=== PATIENT | male | born 1970 | race African-American/Black ===

== ENCOUNTER 2022-05-20 07:09 | Outpatient (REF) | payer OTHER, SELFPAY ==
[2022-05-20 11:12] LABS: MANUAL DIFF FLAG NO
[2022-05-20 11:19] LABS: Basophils Percent Auto 0.6 % (0-2); Eosinophils Absolute Auto 0.1 X10*3/uL (0.0-0.4); Eosinophils Percent Auto 1.8 % (0-4); Hematocrit 45.3 % (42.0-52.0); Hemoglobin 15.5 g/dl (14.0-18.0); Imm Gran Abs Auto 0.02 X10*3/uL (0.00-0.03); Imm Gran Pct Auto 0.3 % (0.0-0.4); Lymphocytes Absolute Auto 2.9 X10*3/uL (1.2-4.9); Lymphocytes Percent Auto 41.2 % (20-40); Mean Corpuscular HGB Conc 34.2 g/dl (31.0-36.0); Mean Corpuscular Hemoglobin 30.9 pg (27.0-33.0); Mean Corpuscular Volume 90.4 fL (80.0-98.0); Mean Platelet Volume 12.6 fL (9.4-12.4); Monocytes Absolute Auto 0.4 X10*3/uL (0.1-1.2); Monocytes Percent Auto 6.1 % (2-11); Neutrophils Absolute Auto 3.5 x10*3/uL (2.0-8.3); Platelet Count 197 X10*3/uL (160-400); Red Blood Count 5.01 X10*6/uL (4.60-5.80); Red Cell Distribution Width 11.7 % (11.0-16.0); White Blood Count 7.1 X10*3/uL (4.8-10.8)
[2022-05-20 12:26] LABS: Alanine Aminotransferase 25 U/L (0-40); Anion Gap 13 (12-20); Aspartate Amino Transferase 18 U/L (5-37); Blood Urea Nitrogen 16 mg/dL (9-16); Carbon Dioxide 25 mmol/L (22-29); Chloride 104 mmol/L (96-108); Cholesterol 291 mg/dL; Estimated Glomerular Filt Rate > 60; Glucose Fasting 299 mg/dL (60-99); HDL Cholesterol 39 mg/dL; LDL Cholesterol Calculated 217 mg/dl; Potassium 4.6 mmol/L (3.3-5.1); Sodium 137 mmol/L (135-145); Triglycerides 179 mg/dL
[2022-05-20 12:34] LABS: PSA,Total (Free>4and<10) 1.28 ng/mL (0.00-4.00); TSH reflex Free T4 0.99 uIU/mL (0.32-4.0); Vitamin D 25-OH Total 24.2 ng/mL (>30)
[2022-05-25 14:24] LABS: Testosterone, Free 94.5 pg/mL (35.0-155.0); Testosterone, Total 508 ng/dL (250-1100)
== END 2022-05-20 07:10 | disposition home or self-care (01) ==
LOC: HO.HMGCLDS 07:09
PROVIDERS: PCP Internal Medicine; Visit Provider Internal Medicine
DX: Z00.01 Encounter for general adult medical examination with abnormal findings (principal); Z12.5 Encounter for screening for malignant neoplasm of prostate; F32.A Depression, unspecified; F41.9 Anxiety disorder, unspecified; N52.9 Male erectile dysfunction, unspecified; E66.3 Overweight
CPT/HCPCS: 36415; 80048; 80061; 82306; 84153; 84402; 84403; 84443; 84450; 84460; 85025

== ENCOUNTER → 2022-06-24 14:48 | Outpatient (BNVA) | payer OTHER, SELFPAY | PROVIDERS: PCP Internal Medicine; Visit Provider Nurse Practitioner Family ==

== ENCOUNTER → 2022-06-30 07:47 | Outpatient (BNVA) | payer OTHER, SELFPAY | PROVIDERS: PCP Internal Medicine; Referring Provider Internal Medicine; Visit Provider Nurse Practitioner Family ==

== ENCOUNTER 2022-09-29 08:41 | Outpatient (AMB) | payer OTHER, SELFPAY ==
--- NOTE | 2022-09-29 08:43 | A.OFFVIS_ITS ---
Intake Intake Visit Reasons: 3m follow up Intake Note: Patient presents for follow up visit erectile dysfunction Urology Medications: Tadalafil Blood Thinner: none Solar Energy Sales Specialist Required: No Accompanied by: Self / Same As Patient Allergies No Known Allergies Allergy (Unverified 09/29/22 12:06) Medication List - Last Reconciled 09/29/22 by OTILIA Dasilva bisacodyl (Dulcolax (bisacodyl)) 10 mg (2 x 5 mg) PO ONCE 1 day polyethylene glycol 3350 (Miralax) 238 grams PO ONCE tadalafil (Cialis) 5 mg PO DAILY PRN 90 days tadalafil (Cialis) 20 mg PO DAILY 90 days HPI HPI Comments History of Present Illness Details Imtiaz is a pleasant 51-year-old male patient of Dr. Patel. He presents to the office today for a follow up. Of note, patient was previously seen approximately 3 months ago as a new patient for erectile dysfunction at which time he was started on low-dose 5 mg of Cialis daily with additional p.r.n. dose for sexual activity. In discussion with the patient today he reports this to be working well and wishes to continue. When asked patient reports to be doing and feeling well. He continues with poor sleep habits. In office urinalysis with 3+ glucosuria. Patient reports being diagnosed with diabetes in the past however lost a significant amount of weight and believed himself to not have diabetes. Discussed at length diabetes in relation to urological issues as well as overall health and well-being. Discussed at length importance of limiting/quitting marijuana in the affects of marijuana on erectile dysfunction and overall health and well-being. Patient otherwise denies urinary urgency, urinary frequency, incontinence, nocturia, hematuria, dysuria, foul smelling urine, changes to urinary stream, flank pain, fever, and or chills. He is happy with his current voiding parameters. In review of patient's chart PSA 05/13--1.3 and Testosterone level 05/13--508. PFSH Medical History Erectile dysfunction Family history of thyroid disease in mother Overweight (BMI 25.0-29.9) Surgical History No pertinent past surgical history Family History Father Alcohol abuse by father Mother Mental health disorder Diabetes mellitus Goiter Brother Depression Social History Housing: House Patient Tobacco Use Status: Former Tobacco user e-Cigarette/Vaping Use: Never Used service: No Current occupational status: employed Cognitive needs: No Hearing needs: No Vision needs: Yes Review of Systems Const All systems reviewed & are unremarkable except as noted in HPI and below Reports as per HPI Eyes Reports no additional complaints ENT Reports no additional complaints Card Reports no additional complaints Resp Reports no additional complaints GI Reports no additional complaints Reports as per HPI Musc Reports no additional complaints Neuro Reports no additional complaints Psych Reports no additional complaints Endo Reports as per HPI Taqueria/Lymph Reports no additional complaints Aller/Immun Reports no additional complaints Physical Exam Const General: cooperative, healthy appearing, comfortable, no acute distress, well developed, alert and awake Orientation/consciousness: patient oriented x3 Limitations: no limitations HEENT Head: Yes normal to inspection, Yes normocephalic and Yes atraumatic Ears: hearing grossly normal bilaterally Eyes General: appearance normal, both eyes and all related structures Neck Neck: Yes normal visual inspection and Yes trachea midline Chest Chest palpation & inspection: normal inspection of the chest Resp Effort & Inspection: normal respiratory effort and able to speak in complete sentences Cardio Rate: regular rate GI Inspection: Yes normal to inspection General: Yes no CVA tenderness Back/Spine/Pelvis Back: no CVA tenderness Skin General skin exam: no rashes or lesions noted Neuro General: patient oriented x3 Extrem General: Yes normal to inspection Psych Appearance: grossly normal and well kempt Mental Status: mental status grossly normal Speech and movement: Normal speech and movement present and Clear speech present Affect: normal affect Attitude: cooperative Thought process: Normal thought process present Thought content: Normal thought content present Insight: Fair insight present (Psych) Judgement: Fair judgement present (Psych) Results AMB Urinalysis, Automated UA Leukoctes 0 Reji/uL Last Edit by Jan Hernandez on 09/29/22 09:10 UA Nitrite Last Edit by Jan Hernandez on 09/29/22 09:10 UA Urobilinogen 0.2 mg/dL Last Edit by Jan Hernandez on 09/29/22 09:10 UA Protein 30 mg/dL Last Edit by Jan Jovanahailey on 09/29/22 09:10 UA pH 6.0 Last Edit by Jan Hernandez on 09/29/22 09:10 UA Blood 0 Federico/uL Last Edit by Jan Hernandez on 09/29/22 09:10 UA Specific Mclean 1.020 Last Edit by Jan Hernandez on 09/29/22 09:10 UA Ketone Negative Last Edit by Jan Hernandez on 09/29/22 09:10 UA Bilirubin 0 mg/dL Last Edit by Jan Hernandez on 09/29/22 09:10 UA Glucose 1000 mg/dL Last Edit by Jan Hernandez on 09/29/22 09:10 Results Reviewed Results Reviewed: Laboratory Last Values Urine pH (Auto) 6.0 09/29/22 08:59 Specific Mclean (Auto) 1.020 09/29/22 08:59 Urine Protein (Auto) 30 mg/dL 09/29/22 08:59 Glucose (UA)(Auto) 1000 mg/dL 09/29/22 08:59 Urine Ketones (Auto) Negative 09/29/22 08:59 Urine Blood (Auto) 0 Federico/uL 09/29/22 08:59 Urine Bilirubin (Auto) 0 mg/dL 09/29/22 08:59 Urine Urobilinogen (Auto) 0.2 mg/dL 09/29/22 08:59 Leukocyte Esterase (Auto) 0 Reji/uL 09/29/22 08:59 Assessment & Plan Assessment & Plan (1) Erectile dysfunction: Code(s): N52.9 - Male erectile dysfunction, unspecified Plan In office urinalysis results reviewed with the patient today. Discussed at length importance of lifestyle modifications with adequate sleep, limiting/quitting recreational marijuana, in weight loss for improvement in erectile dysfunction as well as overall health and well-being. Refills provided on 5 mg low-dose Cialis daily and p.r.n. for sexual activity. Patient otherwise denies any urological issues or concerns at this time. He is happy with his current voiding parameters PSA in 6 months. Follow-up in 6 months with lab to be completed prior; or sooner with any issues, concerns, and or questions. Orders: Orders Prostate Specific Antigen 6 Months N40.0 - Benign prostatic hyperplasia without lower urinary tract symptoms AMB Urinalysis Automated Today Z13.9 - Encounter for screening, unspecified Medications: Refilled tadalafil (Cialis) [facility] Group [facility] [address] [id number] 5 mg PO DAILY 90 days PRN 90 tabs 4RF sexual activity tadalafil (Cialis) [facility] Group [facility] [address] [id number] 20 mg PO DAILY 90 days 20 tabs 4RF Patient Instructions: The patient had an opportunity to ask questions regarding the treatment plan. All questions were answered. Physical exam, labs, and imaging were discussed and reviewed in detail. As well as risks, benefits, and discussion of treatment choices. No major barriers to understanding were identified. The patient expressed understanding and agreement with the above treatment plan. The patient was made aware they should contact our office by phone for worsening of their current condition, the appearance of new symptoms, or with any questions or concerns. Compliance is encouraged with any medications and follow up testing that is ordered. It is a privilege to be allowed the opportunity to participate in? your urological care.? Again, if you have any questions or concerns If you have any questions or concerns please do not hesitate to contact me. The office is [phone]. This note is constructed using voice recognition software. While every effort h as been made to ensure accuracy interactive media marketing specialist errors may have been included. Yours sincerely, OTILIA Dasilva Coding Level of Care Code Est Pt Level 3 (48563) Diagnoses Erectile dysfunction N52.9
== END 2022-09-29 09:30 | disposition home or self-care (01) ==
PROVIDERS: Visit Provider Nurse Practitioner Family
DX: N52.9 Male erectile dysfunction, unspecified (principal)
CPT/HCPCS: 99213

== ENCOUNTER → 2022-09-29 08:41 | Outpatient (BNVA) | payer OTHER, SELFPAY | PROVIDERS: Visit Provider Nurse Practitioner Family ==

== ENCOUNTER 2023-02-14 02:45 | Emergency (ER) | payer OTHER, SELFPAY ==
[2023-02-14 02:46] VITALS: BP 122/82; BP 138/81; PULSE 102; PULSE 108; RESP 14; TEMP 36.5; O2SAT 94; O2SAT 97; BMI 29.2
[2023-02-14 03:07] LABS: Glucose, Whole Blood 410 mg/dL (60-115)
[2023-02-14] MEDS: metFORMIN HCl 500 MG TABLET PO (03:08)
[2023-02-14] MEDS: Insulin Lispro 100 UNIT/ML 3 ML VIAL 14 UNIT SUBCUT (03:08)
[2023-02-14] MEDS: Insulin Glargine,Hum.rec.anlog 100 UNIT/ML 10 ML VIAL 20 UNIT SUBCUT (03:09)
--- NOTE | 2023-02-14 03:21 | PC.NURSE ---
pt ambulating well, walked in a straight line, gait even and steady
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
== END 2023-02-14 03:33 | disposition home or self-care (01) ==
LOC: HO.ED 03:32
PROVIDERS: Emergency Provider Internal Medicine
DX: Z04.1 Encounter for examination and observation following transport accident (principal); E11.65 Type 2 diabetes mellitus with hyperglycemia; F10.10 Alcohol abuse, uncomplicated
CPT/HCPCS: 82947; 99283; 99284

== ENCOUNTER 2023-04-01 08:16 | Day surgery (SDC) | payer OTHER, SELFPAY ==
[2023-03-30 13:00] VITALS: BMI 28.6
--- NOTE | 2023-03-31 11:53 | HO.ANESPROP2 ---
HPI - Anesthesia Eval Consult details Narrative: 52yo M for Colonoscopy [facility] Active Problems Active Problems: All Active Problems (Updated 02/15/23 @ 00:01 by Mateus Pope) Family history of thyroid disease in mother (Acute) Erectile dysfunction (Acute) Overweight (BMI 25.0-29.9) (Acute) Past Medical History Medical History Family history of thyroid disease in mother Erectile dysfunction Overweight (BMI 25.0-29.9) Family History Family History Father Alcohol abuse by father Mother Mental health disorder Diabetes mellitus Goiter Brother Depression Surgical History Surgical History No pertinent past surgical history Social History Social History Housing: House Alcohol intake: current Alcohol intake frequency: a few times a week Patient Tobacco Use Status: Former Tobacco user e-Cigarette/Vaping Use: Never Used Substance Use Type: Marijuana service: No Current occupational status: employed Cognitive needs: No Hearing needs: No Vision needs: Yes Meds Allergies Allergy/AdvReac Type Severity Reaction Status Date / Time No Known Allergies Allergy Verified 02/14/23 03:33 Exam Height,Weight and Vital Signs: Height 5 ft 8 in Weight 85.275 kg Assessment and Plan Assessment Anesthesia Assessment: Chart Reviewed
[2023-04-01 08:27] VITALS: BMI 27.9
[2023-04-01 08:29] VITALS: BP 112/80; PULSE 89; RESP 16; TEMP 36.4; O2SAT 97
[2023-04-01 08:42] LABS: Glucose, Whole Blood 214 mg/dL (60-115)
[2023-04-01] MEDS: Lactated Ringers 1,000 ML 100 ML IVCONT (08:44)
--- NOTE | 2023-04-01 08:56 | MHC.SHP ---
Pre-Procedural Eval Section A - 24 Hr Update-Section A only Date of Service: 04/01/23 The patient is an INPATIENT: No The patient has been examined within 24 hours of the surgical procedure. The History & Physical has been completed within 30 days and I have reviewed it.: No Section B - Complete if H&P > 30 days Chief Complaint: Colon cancer screening Relevant Family History (Specify if Yes): No Relevant Social History: Tobacco Use (former smoker) Present Medications: see Short Stay Collaborative assessment Medical History: Significant History (Erectile dysfunction Family history of thyroid disease in mother Overweight (BMI 25.0-29.9)) History of Previous Operations: Relevant previous surgery/procedure and date(s) (Hx of colonoscopy) Allergies: Allergies Allergy/AdvReac Type Severity Reaction Status Date / Time No Known Allergies Allergy Verified 02/14/23 03:33 Review of Systems Sugical H&P ROS: Negative: Constitution, Cardiovascular, Respiratory and Gastrointestinal Exam Surgical H&P Exam: Normal: Heart, Normal: Lungs, Normal: Extremities and Normal: Abdomen Plan Diagnosis/Plan: Unchanged I have reviewed the history and physical and performed a pertinent physical examination on my patient. No changes have occurred unless specified. Time Spent With Patient Time: Total time managing care of this patient today ____ minutes.
--- NOTE | 2023-04-01 09:10 | P.OP_ITS ---
Operative Note Operative Note Date of Service: 04/01/23 Narrative: COLONOSCOPY TILL CECUM WITH BIOPSIES Pre-op diagnosis: Colon cancer screening, intermittent rectal bleeding Post-op diagnosis:? Colon polyp, diverticulosis, hemorrhoids Endoscopist:? Paty Banda MD Anesthesia:?MAC Consent: Indications for the procedure and potential complications of bleeding, perforation, reaction to medications and missed diagnosis were discussed with the patient and informed consent was obtained. Instrument: Olympus CF H 190 L variable stiffness adult colonoscope Monitoring: Vital signs and clinical assessment, intermittent blood pressure monitoring, continuous EKG monitoring, Pulse oximetry and Carbon Dioxide monitoring were done throughout the procedure. Please see anesthesia flowsheet. Colon withdrawl time was 16 minutes. Procedure: The patient was placed in the left lateral decubitis position and pre-procedure medications were administered. After a digital rectal examination of the ano-rectum, the video colonoscope was inserted into the rectum and advanced through the colon to the cecum. The colonoscope was slowly withdrawn in a retrograde panoramic fashion and the colon mucosa was carefully examined including a retroflexed view of the rectum. Findings and interventions are described below. Procedure Difficulty: Without difficulty Findings: Terminal Ileum: Not evaluated Cecum: Normal Ascending Colon: Normal Transverse Colon: Normal Descending Colon: Normal Sigmoid Colon: A few 4-5 mm diminutive appearing polyps in the rectosigmoid colon - 1 was removed with a cold biopsy. Moderate diverticulosis Rectum: A few 4-5 mm diminutive appearing polyps in the rectosigmoid colon Ano-rectum: Large nonbleeding internal hemorrhoids Colon preparation: Excellent [place] Bowel Preparation Scale Right colon; 3 Transverse colon: 3 Left colon;3 (0 = Unprepared colon segment with mucosa not seen due to solid stool that cannot be cleared. 1 = Portion of mucosa of the colon segment seen, but other areas of the colon segment not well seen due to staining, residual stool and/or opaque liquid. 2 = Minor amount of residual staining, small fragments of stool and/or opaque liquid, but mucosa of colon segment seen well. 3 = Entire mucosa of colon segment seen well with no residual staining, small fragments of stool or opaque liquid) Impression and Post Procedure Diagnosis: Colonoscopy Findings: One diminutive appearing polyp removed Moderate diverticulosis seen in the sigmoid colon Large non-bleeding hemorrhoids on retroflexed exam. Plan: Await pathology results Patient has an appointment on 04/15/23 in the GI Clinic with Anusha Mckeon FNP- [facility]. Repeat Colonoscopy interval based on path results - in 5 years if polyps are adenomatous and 10 years if polyps are hyperplastic. Colon polyps, hemorrhoids and diverticulosis handouts were given in the [facility] [place] area
--- NOTE | 2023-04-01 09:11 | HO.ANESPROP2 ---
[facility] Active Problems Active Problems: All Active Problems (Updated 02/15/23 @ 00:01 by Mateus Pope) Family history of thyroid disease in mother (Acute) Erectile dysfunction (Acute) Overweight (BMI 25.0-29.9) (Acute) Diabetes type 2 Past Medical History Medical History Family history of thyroid disease in mother Erectile dysfunction Overweight (BMI 25.0-29.9) Family History Family History Father Alcohol abuse by father Mother Mental health disorder Diabetes mellitus Goiter Brother Depression Family history of problems with anesthesia: No Surgical History Surgical History No pertinent past surgical history History of Problems with Anesthesia: No Social History Social History Housing: House Alcohol intake: current Alcohol intake frequency: a few times a week Patient Tobacco Use Status: Former Tobacco user e-Cigarette/Vaping Use: Never Used Use of substances other than those prescribed or required for medical reasons: Yes Substance Use Type: Marijuana Are you DNR?: No Advance Directives: No Advance Directives Information Provided: Yes service: No Current occupational status: employed Cognitive needs: No Hearing needs: No Vision needs: Yes Meds Allergies Allergy/AdvReac Type Severity Reaction Status Date / Time No Known Allergies Allergy Verified 02/14/23 03:33 Active Medications: Current Medications Lactated Ringer's (Lr) 1,000 mls @ 100 mls/hr IVCONT .Q10H MELIDA Last Admin: 04/01/23 08:44 Dose: 100 mls/hr Exam Height,Weight and Vital Signs: Height 5 ft 9 in Weight 85.786 kg Last Vital Signs Temp 97.6 F 04/01/23 08:29 Pulse 89 04/01/23 08:29 Resp 16 04/01/23 08:29 BP 112/80 04/01/23 08:29 Pulse Ox 97 04/01/23 08:29 O2 Del Method Room Air 04/01/23 08:29 Pertinent Lab Results Pertinent Lab Results: Laboratory Tests 04/01/23 08:38 POC Glucose 214 H Airway Mallampati Class: III TM Dist: >3cm Neck ROM: Full Heart: RRR Lungs: CTA Assessment and Plan Assessment Anesthesia Assessment: Anesthesia Plan Discussed Final Anesthetic Review Family History of Problems with Anesthesia: No History of Problems with Anesthesia: No ASA Class: III Final Preanesthetic Review: Meds/Allgs Chart Reviewed, Consent Obtained/Reviewed and Anes Risks/Benef Reviewed Patient Risk: Low Procedure Risk: Low Anesthetic Plan Anesthetic Plan: MAC: Disposition: Standard PACU
[2023-04-01 09:48] VITALS: BP 93/53; PULSE 85; RESP 16; TEMP 36.3; O2SAT 97
[2023-04-01 10:03] VITALS: BP 116/67; PULSE 76; RESP 16; TEMP 36.3; O2SAT 98
--- NOTE | 2023-04-01 14:06 | HO.POSTANES ---
Post Anesthesia Evaluation Post Anesthesia Evaluation Date of Service: 04/01/23 Vital Signs: Vital Signs Temp Pulse Resp BP Pulse Ox O2 Del Method 04/01/23 10:03 97.3 F 76 16 116/67 98 Room Air 04/01/23 09:48 97.3 F 85 16 93/53 L 97 Room Air 04/01/23 08:29 97.6 F 89 16 112/80 97 Room Air Anesthesia: Monitored Mental Status: Awake Pain Control: Satisfactory Nausea/Vomiting: None Hydration: Adequate Anesthesia-Related Issues: No Anes. Related Issues
== END 2023-04-01 11:00 | disposition home or self-care (01) ==
PROVIDERS: Visit Provider Internal Medicine Gastroenterology
PROC: 0DJD8ZZ Inspection of Lower Intestinal Tract, Via Natural or Artificial Opening Endoscopic (ICD-10-PCS; CPT 45378; principal; 2023-04-01 09:00)
DX: Z12.11 Encounter for screening for malignant neoplasm of colon (principal); K63.5 Polyp of colon; K57.30 Diverticulosis of large intestine without perforation or abscess without bleeding; K64.8 Other hemorrhoids; R73.9 Hyperglycemia, unspecified; Z83.3 Family history of diabetes mellitus
CPT/HCPCS: 45380; 82947; 88305; J2704

== ENCOUNTER → 2023-04-01 08:16 | Outpatient (BNV) | payer OTHER, SELFPAY | PROVIDERS: Visit Provider Internal Medicine Gastroenterology | DX: Z12.11 Encounter for screening for malignant neoplasm of colon (principal); K63.5 Polyp of colon; K57.30 Diverticulosis of large intestine without perforation or abscess without bleeding; K64.8 Other hemorrhoids | CPT/HCPCS: 45380 ==

== ENCOUNTER 2023-10-25 10:24 | Outpatient (REF) | payer OTHER, SELFPAY ==
[2023-10-25 11:43] LABS: Prostate Specific Antigen 1.17 ng/mL (<0.05-4.0)
== END 2023-10-25 10:25 | disposition home or self-care (01) ==
LOC: HO.LAB 10:24
PROVIDERS: Visit Provider Nurse Practitioner Family
DX: N40.0 Benign prostatic hyperplasia without lower urinary tract symptoms (principal); Z12.5 Encounter for screening for malignant neoplasm of prostate
CPT/HCPCS: 36415; 84153

== ENCOUNTER 2023-12-06 14:30 | Outpatient (AMB) | payer OTHER, SELFPAY ==
--- NOTE | 2023-12-06 14:48 | A.OFFVIS_ITS ---
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 Patel. He presents to the office today for a follow up of his erectile dysfunction. Of note, patient was seen approximately 1 year ago at which time was started on low-dose Cialis daily as well as p.r.n. dosing prior to sexual activity. In discussion with the patient today he reports minimal improvement in obtaining and maintaining his erections despite utilizing these medications. He continues to smoke recreational marijuana daily. We discussed at length importance of limiting/quitting recreational marijuana in relation to erectile dysfunction. In office urinalysis notes 3+ glucosuria we also discussed at length importance of managing diabetes for improvement in erections and overall health and well- being. He otherwise denies any bothersome urinary issues. He denies urinary urgency, urinary frequency, incontinence, nocturia, hematuria, dysuria, foul smelling urine, changes to urinary stream, flank pain, fever, and or chills. He is happy with his current voiding parameters. Recent PSA results reviewed with the patient today as noted and trended below... PSA 05/13 1.3, 11/14 1.2 Testosterone level 05/13 508 free testosterone 94.5. He otherwise offers no other issues or concerns at the time. [facility] Medical History Family history of thyroid disease in mother Erectile dysfunction Overweight (BMI 25.0-29.9) Surgical History No pertinent past surgical history Family History Father Alcohol abuse by father Mother Mental health disorder Diabetes mellitus Goiter Brother Depression Social History Housing: House Alcohol intake: current Alcohol intake frequency: a few times a week Patient Tobacco Use Status: Former Tobacco user e-Cigarette/Vaping Use: Never Used Substance Use Type: Marijuana service: No Current occupational status: employed Cognitive needs: No Hearing needs: No Vision needs: Yes Review of Systems Const All systems reviewed & are unremarkable except as noted in HPI and below Reports as per HPI Eyes Reports no additional complaints ENT Reports no additional complaints Card Reports no additional complaints Resp Reports no additional complaints GI Reports no additional complaints Reports as per HPI Musc Reports no additional complaints Neuro Reports no additional complaints Psych Reports no additional complaints Endo Reports as per HPI Taqueria/Lymph Reports no additional complaints Aller/Immun Reports no additional complaints Physical Exam Const General: cooperative, healthy appearing, comfortable, no acute distress, well developed, alert and awake Orientation/consciousness: patient oriented x3 Limitations: no limitations HEENT Head: Yes normal to inspection, Yes normocephalic and Yes atraumatic Ears: hearing grossly normal bilaterally Eyes General: appearance normal, both eyes and all related structures Neck Neck: Yes normal visual inspection and Yes trachea midline Chest Chest palpation & inspection: normal inspection of the chest Resp Effort & Inspection: normal respiratory effort and able to speak in complete sentences Cardio Rate: regular rate GI Inspection: Yes normal to inspection General: Yes no CVA tenderness Back/Spine/Pelvis Back: no CVA tenderness Skin General skin exam: no rashes or lesions noted Neuro General: patient oriented x3 Extrem General: Yes normal to inspection Psych Appearance: grossly normal and well kempt Mental Status: mental status grossly normal Speech and movement: Normal speech and movement present and Clear speech present Affect: normal affect Attitude: cooperative Thought process: Normal thought process present Thought content: Normal thought content present Insight: Fair insight present (Psych) Judgement: Fair judgement present (Psych) Results AMB Urinalysis, Automated UA Leukoctes 0 Reji/uL Last Edit by [employer]ara [employer]hailey on 12/06/23 15:14 UA Nitrite Last Edit by [employer] on 12/06/23 15:14 UA Urobilinogen 0.2 mg/dL Last Edit by [employer]iley on 12/06/23 15:14 UA Protein 15 mg/dL Last Edit by [employer] on 12/06/23 15:14 UA pH 5.5 Last Edit by [employer] on 12/06/23 15:14 UA Blood 0 Federico/uL Last Edit by [employer] on 12/06/23 15:14 UA Specific Jerome 1.015 Last Edit by [employer] on 12/06/23 15:14 UA Ketone Last Edit by [employer] on 12/06/23 15:14 UA Bilirubin 0 mg/dL Last Edit by [employer] on 12/06/23 15:14 UA Glucose 1000 mg/dL Last Edit by [employer] on 12/06/23 15:14 Results Reviewed Results Reviewed: Laboratory Last Values Urine pH (Auto) 5.5 12/06/23 15:11 Specific Jerome (Auto) 1.015 12/06/23 15:11 Urine Protein (Auto) 15 mg/dL 12/06/23 15:11 Glucose (UA)(Auto) 1000 mg/dL 12/06/23 15:11 Urine Blood (Auto) 0 Federico/uL 12/06/23 15:11 Urine Bilirubin (Auto) 0 mg/dL 12/06/23 15:11 Urine Urobilinogen (Auto) 0.2 mg/dL 12/06/23 15:11 Leukocyte Esterase (Auto) 0 Reji/uL 12/06/23 15:11 Assessment & Plan Assessment & Plan (1) Erectile dysfunction associated with type 2 diabetes mellitus: Code(s): E11.69 - Type 2 diabetes mellitus with other specified complication; N52.1 - Erectile dysfunction due to diseases classified elsewhere Category: Medical Plan In office urinalysis results with the patient today; as noted above. Recent PSA results reviewed with the patient today; as noted above. Discussed, educated, and stressed the importance of managing diabetes for improvement in ED as well as overall health and well-being. Continue 5 mg of Cialis daily P.r.n. prescription provided for Viagra We discussed further treatment options of erectile dysfunction to include penile injection therapy. Discussed at length importance of lifestyle modifications with adequate sleep, limiting/quitting recreational marijuana, in weight loss for improvement in erectile dysfunction as well as overall health and well-being. Patient otherwise denies any urological issues or concerns at this time. He is happy with his current voiding parameters Will obtain A1c Follow-up in 3 months with A1c to be completed prior or sooner with any issues, concerns, and or questions. Orders: Orders AMB Urinalysis Automated Today Z13.9 - Encounter for screening, unspecified Medications: New sildenafil (Viagra) Take 1 tablet as needed 1 hour prior to sexual activity do not exceed more than 2-3 tablets per week. [facility] [address] [id number] 100 mg PO .PRN 30 days 14 tabs 3RF Discontinued tadalafil (Cialis) [facility] [address] [id number] Discontinued Reason: Doctor's Order 20 mg PO DAILY 90 days 20 tabs 0RF Patient Instructions: The patient had an opportunity to ask questions regarding the treatment plan. All questions were answered. Physical exam, labs, and imaging were discussed and reviewed in detail. As well as risks, benefits, and discussion of treatment choices. No major barriers to understanding were identified. The patient expressed understanding and agreement with the above treatment plan. The patient was made aware they should contact our office by phone for worsening of their current condition, the appearance of new symptoms, or with any questions or concerns. Compliance is encouraged with any medications and follow up testing that is ordered. It is a privilege to be allowed the opportunity to participate in? your urological care.? Again, if you have any questions or concerns If you have any questions or concerns please do not hesitate to contact me. The office is [phone]. This note is constructed using voice recognition software. While every effort has been made to ensure accuracy application developer errors may have been included. Yours sincerely, OTILIA Dasilva Coding Level of Care Code Est Pt Level 4 (42665) Diagnoses Erectile dysfunction associated with type 2 diabetes mellitus E11.69; N52.1
== END 2023-12-06 15:22 | disposition home or self-care (01) ==
PROVIDERS: Visit Provider Nurse Practitioner Family
DX: E11.69 Type 2 diabetes mellitus with other specified complication (principal); N52.1 Erectile dysfunction due to diseases classified elsewhere; Z13.9 Encounter for screening, unspecified
CPT/HCPCS: 99214

== ENCOUNTER → 2023-12-06 14:30 | Outpatient (BNVA) | payer OTHER, SELFPAY | PROVIDERS: Visit Provider Nurse Practitioner Family | DX: E11.69 Type 2 diabetes mellitus with other specified complication (principal); N52.1 Erectile dysfunction due to diseases classified elsewhere | CPT/HCPCS: 81003 ==

== ENCOUNTER 2024-11-08 09:46 | Outpatient (AMB) | payer OTHER, SELFPAY ==
--- NOTE | 2024-11-08 10:19 | A.OFFPC_ITS ---
Vital Signs 11/08/24 10:20 Height 5 ft 8 in Weight 177 lb BMI 26.9 BP 122/80 Blood Pressure Location Lt brachial Position Sitting Respiration 16 Pulse 90 Pulse Source Pulse Oximeter Temp 98.3 F Temp Source Oral Pulse Oximetry (%) 97 Oxygen Delivery Method Room Air Intake Visit Reasons: Medical Concerns Intake Note: Pt is here today to f/u DM Allergies No Known Allergies Allergy (Verified 11/08/24 10:41) Medication List - Last Reconciled 11/08/24 by Ciara Patel MD blood-glucose meter As directed Tobacco use date assessed: 11/08/24 Dental Screening Dental Screen Date: 11/08/24 Did you have a dental visit in the last 12 months?: No Did you have a dental problem in the last 6 months where you did not have access to dental care?: No Was dental information given to patient?: Patient has dentist HPI Medical Concerns HPI Details 53-year-old male with a history of uncon trolled diabetes mellitus, here today complaining increased fatigue, urinary frequency, foggy headed, and having erectile dysfunction. He was last seen here in 2022 as a new patient, and started on metformin 850 mg twice a day. However did not take the medication [facility] Medical History (Updated 11/08/24 @ 11:40 by Ciara Patel MD) Seborrhea capitis in adult Uncontrolled type 2 diabetes mellitus with hyperglycemia Family history of thyroid disease in mother Erectile dysfunction Overweight (BMI 25.0-29.9) Surgical History No pertinent past surgical history Family History Father Alcohol abuse by father Mother Mental health disorder Diabetes mellitus Goiter Brother Depression Social History Housing: House Alcohol intake: current Alcohol intake frequency: a few times a week Patient Tobacco Use Status: Former Tobacco user e-Cigarette/Vaping Use: Never Used Substance Use Type: Marijuana service: No Current occupational status: employed Cognitive needs: No Hearing needs: No Vision needs: Yes Questionnaire PHQ-9 Over the last 2 weeks, how often have you been bothered by any of the following problems? 1. Little interest or pleasure in doing things: several days 2. Feeling down, depressed, or hopeless: several days 3. Trouble falling or staying asleep, or sleeping too much: not at all 4. Feeling tired or having little energy: several days 5. Poor appetite or overeating: more than half the days 6. Feeling bad about yourself - or that you are a failure or have let yourself or your family down: several days 7. Trouble concentrating on things, such as reading the newspaper or watching television: more than half the days 8. Moving or speaking so slowly that other people could have noticed. Or the opposite - being so fidgety or restless that you have been moving around a lot more than usual: not at all 9. Thoughts that you would be better off or of hurting yourself in some way: not at all Total score: 8 Depression Screening Interpretation: Negative Depression Screening Done: Yes 56344 - PHQ-9 Billing: Yes Source: Developed by Drs. Evangelist Johnston, Lana Castle, Dieudonne Mercedes and colleagues, with an educational delmy from [employer]. Thrive Questionnaire Date Thrive assessed: 11/08/24 I am a: Patient What is your living situation today?: I have a place to live, but I am worried about losing it in the future Within the past 12 months, did the food you bought not last and you didn't have the money to get more?: Sometimes True Within the past 12 months, did you worry whether your food would run out before you got money to buy more?: Sometimes True Do you have trouble paying for medicines?: Yes Do you have trouble getting transportation to medical appointments?: No Do you have trouble paying your heating and electricity bill?: No Do you have trouble taking care of your child, family member or friend?: No Do you have trouble with day-to-day activities such as bathing, preparing meals, shopping, managing finances, etc.?: Yes Are you currently unemployed and looking for a job?: No Are you interested in more education?: No Please select the resources that you would like help with: Job search/training Currently or been in a relationship where the following occur: No concerns reported THRIVE Score: 3 AUDIT C Alcohol Use Questionnaire (AUDIT-C) 1. How often do you have a drink containing alcohol?: 2-3 times a week 2. How many drinks containing alcohol do you have on a typical day when you are drinking?: 5 or 6 3. How often do you have six or more drinks on one occasion?: Monthly Total Score: 7 Score Reviewed/Action Taken: Yes NAJMA-7 AMB Questionnaire NAJMA-7 Date NAJMA - 7 assessed: 11/08/24 Feeling nervous, anxious, or on edge: 1 = Several days Not being able to stop or control worryin = Several days Worrying too much about different things: 1 = Several days Trouble relaxin = Several days Being so restless that it is hard to sit still: 1 = Several days Becoming easily annoyed or irritable: 1 = Several days Feeling afraid as if something awful might happen: 0 = Not at all Total NAJMA-7 score (0-4 normal; 5-9 mild; 10-14 moderate; 15-21 severe): 6 Source: Developed by Drs. Evangelist Johnston, Lana Castle, Dieudonne Mercedes and colleagues, with an educational delmy from [employer]. NAJMA-7 Assessment Billing NAJMA-7 Assessment Tool: NAJAM-7 Assessment 56818 Review of Systems Eyes Details: Goes to [facility] in [place] Physical exam (Primary Care) Vital Signs: Last Vital Signs Temp 98.3 F 11/08/24 10:20 Pulse 90 11/08/24 10:20 Resp 16 11/08/24 10:20 BP 122/80 11/08/24 10:20 Pulse Ox 97 11/08/24 10:20 Oxygen Delivery Method Room Air 11/08/24 10:20 BMI result Body Mass Index 26.9 Tobacco/Smoking Status: Tobacco use Status Tobacco use date assessed 11/08/24 11/08/24 10:27 Patient Tobacco Use Status Former Tobacco user 11/08/24 10:27 e-Cigarette/Vaping Use Never Used 11/08/24 10:27 PHQ-9: PHQ-9 Score PHQ-9: Total score 8 11/08/24 10:43 Depression Screening Interpretation: Negative Thrive Assessment: Date of Thrive Assessment Date Thrive assessed 11/08/24 11/08/24 10:27 Currently or been in a relationship where the following occur: No concerns reported Results AMB Hemoglobin A1c AMB Hemoglobin A1c 11.4 % Last Edit by Clementina Camara CMA on 11/08/24 10:43 Results Reviewed Results Reviewed: Laboratory Last Values Hgb A1c (Clinic) 11.4 % (4.0-6.0) H 11/08/24 10:33 Coding Level of Care Code New Pt Level 4 (07688) Diagnoses Uncontrolled type 2 diabetes mellitus with hyperglycemia E11. 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 Erectile dysfunction associated with type 2 diabetes mellitus E11.; N52.1 Nocturia R35.1 Urinary hesitancy R39.11 Seborrhea capitis in adult L21.0 Additional Codes NAJMA-7 Assessment Billing - NAJMA-7 Assessment Tool: NAJMA-7 Assessment [id number] ([id number]) PHQ-9 - 37929 - PHQ-9 Billing: Yes ([id number]) Assessment & Plan Assessment & Plan (1) Uncontrolled type 2 diabetes mellitus with hyperglycemia: Code(s): E11.65 - Type 2 diabetes mellitus with hyperglycemia Category: Medical Plan: Declines vaccines (2) Erectile dysfunction: Code(s): N52.9 - Male erectile dysfunction, unspecified Category: Medical (3) 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 (4) Erectile dysfunction associated with type 2 diabetes mellitus: Code(s): E11.69 - Type 2 diabetes mellitus with other specified complication; N52.1 - Erectile dysfunction due to diseases classified elsewhere Category: Medical (5) Nocturia: Code(s): R35.1 - Nocturia (6) Urinary hesitancy: Code(s): R39.11 - Hesitancy of micturition (7) Seborrhea capitis in adult: Comment: on scalp and above eyebrows Code(s): L21.0 - Seborrhea capitis Category: Medical Orders: Orders AMB Hemoglobin A1c Today E11.69 - Type 2 diabetes mellitus with other specified complication, N52.1 - Erectile dysfunction due to diseases classified elsewhere Comprehensive [place]. Panel Fast Today E11.65 - Type 2 diabetes mellitus with hyperglycemia, N52.9 - Male erectile dysfunction, unspecified Lipid Panel Today E11.65 - Type 2 diabetes mellitus with hyperglycemia, N52.9 - Male erectile dysfunction, unspecified Complete Blood Count Auto Diff Today E11.65 - Type 2 diabetes mellitus with hyperglycemia, N52.9 - Male erectile dysfunction, unspecified Microalbumin, Random (w Creat) Today E11.65 - Type 2 diabetes mellitus with hyperglycemia, N52.9 - Male erectile dysfunction, unspecified Referrals Urology Referral E11.65 - Type 2 diabetes mellitus with hyperglycemia, E11.69 - Type 2 diabetes mellitus with other specified complication, N52.1 - Erectile dysfunction due to diseases classified elsewhere, R35.1 - Nocturia, R39.11 - Hesitancy of micturition Podiatry Referral E11.65 - Type 2 diabetes mellitus with hyperglycemia, Q84.6 - Other congenital malformations of nails Medications: New blood-glucose meter (FreeStyle Ketchum Lite kit) As directed 1 ea 0RF E11.65 - Type 2 diabetes mellitus with hyperglycemia lancets (FreeStyle Lancets) Check fasting glucose twice a day before meals 100 ea 3RF E11.65 - Type 2 diabetes mellitus with hyperglycemia desonide 0.05% (DesOwen) Apply only as needed for dry flaky skin on scalp and eyebrows, for no more than 10 days at a time 1 appl topical BID 60 grams 0RF rash L21.0 - Seborrhea capitis metformin 1,000 mg PO BIDWMEAL 60 tabs 0RF blood sugar diagnostic (FreeStyle Lite Strips) Check fasting glucose twice a day before meals and keep a log of the readings 100 ea 3RF E11.65 - Type 2 diabetes mellitus with hyperglycemia lisinopril 5 mg PO DAILY 30 tabs 3RF
[2024-11-08 10:20] VITALS: BP 122/80; PULSE 90; RESP 16; TEMP 36.8; O2SAT 97; BMI 26.9
--- OUTSIDE RECORDS SUMMARY | 2024-11-08 11:24 | XMS_ITS | Clinical Summary ---
Author Organization [facility] Address [address] [place] [id number] Phone Care Team Providers Care [employer] Maker Gift Wrapping Name Role Phone Pcp, Unknown Primary Care Provider Unavailabl e Allergies No known active allergies Medications No known medications Active Problems No known active problems Social History Tobacco Use Types Packs/Day Years Used Date Smoking Tobacco: Former Smokeless Tobacco: Never Alcohol Use Standard Drinks/Week Comments Yes 0 (1 standard drink = 0.6 oz pur e alcohol) Education Answer Date Recorded Are you interested in more education? Not on tammi e 06/18/2022 Are you concerned about learning? Not on file 06/18/2022 No 06/18/2022 No 06/18/2022 Digital Access Answer Date Recorded No 07/17/2022 No 07/17/2022 No 07/17/2022 Reliable internet access at home? Not on file 07/17/2022 Device with a working camera? Not on file Sex and Gender Information Value Date Recorded Sex Assigned at Not on file Legal Sex Male 9:31 PM EDT Gender Identity Not on file Sexual Orientation Not on file Last Filed Vital Signs Vital Sign Reading Time Taken Comments Blood Pressure 132/88 02/16/2021 1:20 PM EST Pulse 92 02/16/2021 1:20 PM EST Temperature 36.6 C (97.9 F) 02/16/2021 1:20 PM EST Respiratory Rate 18 02/16/2021 1:20 PM EST Oxygen Saturation 98% 02/16/2021 1:20 PM EST Inhaled Oxygen Concentration - - Weight 88.5 kg (195 lb) 02/16/2021 1:20 PM EST Height 172.7 cm (5' 8 ) 02/16/2021 1:20 PM EST Body Mass Index 29.65 02/16/2021 1:20 PM EST Plan of Treatment Health Maintenance Due Date Last Done Comments LIPID PANEL 1972 DEPRESSION SCREENING 1984 SMOKING Hx and SMOKELESS TOBACCO SCREENING 1985 HEPATITIS C SCREENING 1990 HIV ONE-TIME SCREENING (18-6 5 YEARS) 1990 COLOGUARD 2017 COLONOSCOPY 2017 COLORECTAL CANCER SCREENING 2017 FIT TEST 2017 FOBT 2017 SIGMOIDOSCOPY 2017 VIRTUAL COLONOSCOPY 2017 PNEUMOCOCCAL VACCINES (50+ years) (1 of 1 - PCV) 2022 ZOSTER VACCINES (1 of 2) 2022 Adult Td,Tdap Booster 04/25/2023 04/24/2013 , 12/08/2010 INFLUENZA VACCINE (#1) 2024 04/24/2013 COVID-19 VACCINE (3 - 2024-2 6 season) 2024 10/28/2020, 09/30/2020 HEPATITIS A VACCINES Aged Out No long er eligible based on patient's age to complete this topic HIB VACCINES Aged Out No longer eligi ble based on patient's age to complete this topic MENINGOCOCCAL VACCINES (ACWY) Aged Out No longer eligible based on patient's age to complete this topic MENINGOCOCCAL VACCINES (B) Aged Out N o longer eligible based on patient's age to complete this topic Medical Devices Not on file Insurance [facility] PPO [facility] PPO [facility] Care Teams [employer] Maker Gift Wrapping Relationship Specialty Start Date End Date Pcp, Unknown PCP - General 02/16/21 Additional Source Comments The information contained in this document represents components of the legal health record. It is not the complete legal health record.[facility]
== END 2024-11-08 11:59 | disposition home or self-care (01) ==
LOC: HO.HMCC 09:47
PROVIDERS: Visit Provider Internal Medicine
DX: E11.69 Type 2 diabetes mellitus with other specified complication (principal); N52.1 Erectile dysfunction due to diseases classified elsewhere

== ENCOUNTER → 2024-11-08 09:46 | Outpatient (BNVA) | payer OTHER, SELFPAY | PROVIDERS: Visit Provider Internal Medicine | DX: E11.65 Type 2 diabetes mellitus with hyperglycemia (principal); E11.69 Type 2 diabetes mellitus with other specified complication; N52.1 Erectile dysfunction due to diseases classified elsewhere; R35.1 Nocturia; Q84.6 Other congenital malformations of nails; R53.83 Other fatigue; R35.0 Frequency of micturition; R39.11 Hesitancy of micturition; L21.0 Seborrhea capitis | CPT/HCPCS: 83036; 96127 ==

== ENCOUNTER 2024-11-21 08:32 | Outpatient (REF) | payer OTHER, SELFPAY | END 2024-11-21 08:33 | disposition home or self-care (01) | LOC: HO.LNP 08:32 | PROVIDERS: Visit Provider Student in an Organized Health Care Education/Training Program | DX: E11.65 Type 2 diabetes mellitus with hyperglycemia (principal); B35.1 Tinea unguium | CPT/HCPCS: 11720; 87101; 87220; 88304; 88312 ==

== ENCOUNTER 2024-11-21 08:32 | Outpatient (AMB) | payer OTHER, SELFPAY ==
[2024-11-21 08:42] VITALS: BMI 27.4
--- NOTE | 2024-11-21 08:42 | A.OFFVIS_ITS ---
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 Patients states he history of toenail removal on his left hallux. Patient was seen by his PCP on 11/08/24 and his A1c was 11.4% at time of visit. he states he has not checked his glucose at this time and he experiences bilateral numbness and tingling in his feet with no burning. He states he is not taking gabapentin however he experiences occasional low back pain. Allergies No Known Allergies Allergy (Verified 11/21/24 08:47) HPI HPI New Pt-malformation of nails, type II diabetes: Details: The patient is a 53-year-old male past medical history of diabetes mellitus type 2, hypertension presents for diabetic foot evaluation and fungal toenails. [facility] a chronic history of fungal toe nails, with previous attempts at treatment including topical medications and total nail removal for his left great toe 3-4 years ago. He states the medication did not help, and the nail removal did mildly improve the appearance. He has not had any treatment since then. The patient has a history of diabetes, diagnosed approximately eight to nine yea rs ago. He states he initially managed the condition well but has recently experienced a lapse in control, with his most recent A1c of 11.8%. The patient has not seen a physician for the past five years and is now seeking to re- establish care and improve his health. The patient does describe some tingling and pins and needle sensations to his feet, denies any burning at this time. [facility] Medical History (Updated 11/21/24 @ 09:12 by Lance Balderrama DPM) Seborrhea capitis in adult Uncontrolled type 2 diabetes mellitus with hyperglycemia Family history of thyroid disease in mother Erectile dysfunction Overweight (BMI 25.0-29.9) Surgical History No pertinent past surgical history Family History Father Alcohol abuse by father Mother Mental health disorder Diabetes mellitus Goiter Brother Depression Social History Housing: House Alcohol intake: current Alcohol intake frequency: a few times a week Patient Tobacco Use Status: Former Tobacco user e-Cigarette/Vaping Use: Never Used Substance Use Type: Marijuana service: No Current occupational status: employed Cognitive needs: No Hearing needs: No Vision needs: Yes Review of Systems Const All systems reviewed & are unremarkable except as noted in HPI and below Physical Exam Vital Signs: BMI result Body Mass Index 27.4 Extrem Other: *Bilateral Lower Extremity Focused Diabetic Foot Exam Vascular: DP/PT 2/4, CFT<3s to digits, TG warm to cool, no pedal edema, pedal hair present Derm: Skin: Annular scaling bilateral feet and inter space regions. Interdigital spaces: Annual scaling bilaterally Nails: Thickened elongated dystrophic toenails bilateral hallux, right hallux worse with subungual debris. Neuro: [place]-alec monofilament (10g) test 10/10 intact to right foot, 10/10 intact to left foot. Msk: Deformities: No evidence of hammertoes, bunions, Charcot changes, or other structural abnormalities. Muscle strength: 5/5 in all muscle groups. Gait: Normal, no antalgic or steppage gait observed. Footwear Assessment: Shoes inspected; appropriate fit, no excessive wear, or foreign objects noted. Office Procedures AMB Debridement/Avulsion Podia Details: Procedure: Nail debridement Location: Right hallux Anesthesia: N/A Description: The affected toenail was cleansed with an antiseptic solution. Using sterile nail nippers, dystrophic and mycotic nail material was carefully debrided. Care was taken to avoid trauma to the surrounding skin and nail bed. All debris was removed as tolerated. The area was inspected for signs of infection or ulceration. Patient tolerated the procedure well without complications. Tolerance: Patient tolerated procedure well, no immediate complications. Class B findings as per physical exam findings above. The patient has a diagnosis of diabetes mellitus and presents with elongated, thickened toenails. Due to underlying diabetic neuropathy, the patient is at increased risk for complications such as ulceration, infection, and difficulty with self-care. Debridement of elongated toenails is medically necessary to prevent development of pressure-related lesions, reduce risk of secondary infection, and maintain foot health in high-risk comorbidities. 91352-Mwckvatrmwb of Nail <6 Procedure code (CPT) selection complete Results Reviewed Results Reviewed: Laboratory Tests 11/08/24 10:33 Hgb A1c (Clinic) 11.4 H Assessment & Plan Assessment & Plan (1) Uncontrolled type 2 diabetes mellitus with hyperglycemia: Code(s): E11.65 - Type 2 diabetes mellitus with hyperglycemia Category: Medical Plan: Risk Stratification: No current ulceration, infection, or pre-ulcerative lesion. No loss of protective sensation or peripheral arterial disease. No plans for further testing/referrals for non-invasive vascular studies. The patient's A1c is above 11% which predisposes him to infections and delayed healing. Patient is at low-moderate risk for diabetic foot complications at this time. Recommendations: Continue routine foot care and daily self-inspection. Recommend moisturizing daily. Recommend supportive proper fitting shoe-wear. The patient may require diabetic shoes in the future. Reinforced diabetic foot education and risks from peripheral neuropathy. (2) Tinea unguium: Code(s): B35.1 - Tinea unguium Category: Medical Plan: * The right hallux nail was debrided and the clipping was sent for pathology and culture. * It was explained that nail avulsions typically do not treat the nail infection however given her dystrophic as right hallux nail is, it may be an option for him, coupled with an antifungal oral or topical treatment. * It was recommended for him to achieve glycemic control with an A1c underneath 7% before proceeding with a nail avulsion procedure. * Follow up in 3 weeks. Orders: Orders AMB Debridement/Avulsion Podiatry Today B35.1 - Tinea unguium Fungus Cult Hair/Skin/Nail Today B35.1 - Tinea unguium Surgical Today B35.1 - Tinea unguium Coding Level of Care Code New Pt Level 4 (17501) Diagnoses Uncontrolled type 2 diabetes mellitus with hyperglycemia E11.65 Tinea unguium B35.1 CPT Codes Skin Debridement - CPT: 01642-Sbuxybehhti of Nail <6 ([id number]) Time Spent (min) 35
--- OUTSIDE RECORDS SUMMARY | 2024-11-21 09:04 | XMS_ITS | Clinical Summary ---
Author Organization [facility] Address [address] [place] [id number] Phone Care Team Providers Care Piercer Operator Name Role Phone Pcp, Unknown Primary Care [...] topic Medical Devices Not on file Insurance [facility] PPO [facility] S S S S S [facility] PPO PHCS Care Teams Piercer Operator Relationship Specialty Start Date End Date Pcp, Unknown PCP - General 02/16/21 Additional Source Comments The information contained in this document represents components of the legal health record. It is not the complete legal health record.[facility]
== END 2024-11-21 09:02 | disposition home or self-care (01) ==
LOC: HO.HPODS 08:33
PROVIDERS: Visit Provider Student in an Organized Health Care Education/Training Program
DX: E11.65 Type 2 diabetes mellitus with hyperglycemia (principal); B35.1 Tinea unguium
CPT/HCPCS: 11720; 99203

== ENCOUNTER 2024-11-29 07:17 | Outpatient (REF) | payer OTHER, SELFPAY ==
[2024-11-29 10:03] LABS: MANUAL DIFF FLAG NO
[2024-11-29 10:05] LABS: Hematocrit 42.7 % (42.0-52.0); Hemoglobin 14.8 g/dl (14.0-18.0); Imm Gran Abs Auto 0.03 X10*3/uL (0.00-0.03); Imm Gran Pct Auto 0.4 % (0.0-0.4); Lymphocytes Absolute Auto 3.1 X10*3/uL (1.2-4.9); Mean Corpuscular HGB Conc 34.7 g/dl (31.0-36.0); Mean Corpuscular Hemoglobin 31.2 pg (27.0-33.0); Mean Corpuscular Volume 90.1 fL (80.0-98.0); NRBC Abs Auto 0.000 X10*3/uL (0.0-0.012); NRBC Pct Auto 0.0 /100WBC (0.0-0.2); Platelet Count 251 X10*3/uL (160-400); Red Blood Count 4.74 X10*6/uL (4.60-5.80); White Blood Count 8.2 X10*3/uL (4.8-10.8)
[2024-11-29 10:22] LABS: Alanine Aminotransferase 16 U/L (0-40); Albumin Level 4.5 g/dL (3.5-5.0); Alkaline Phosphatase 74 U/L (39-117); Anion Gap 10 (12-20); Aspartate Amino Transferase 23 U/L (5-37); Blood Urea Nitrogen 12 mg/dL (9-16); Calcium 9.2 mg/dL (8.4-10.2); Carbon Dioxide 30 mmol/L (22-29); Chloride 103 mmol/L (96-108); Cholesterol 226 mg/dL (<200); Estimated Glomerular Filt Rate > 60; HDL Cholesterol 41 mg/dL (>40); Potassium 3.7 mmol/L (3.3-5.1); Sodium 139 mmol/L (135-145); Total Protein 7.1 g/dL (6.5-8.0); Triglycerides 126 mg/dL (<150)
[2024-11-29 17:14] LABS: Microalbum/Creatinine Ratio Ur 75.2 ug/mg cr (<30)
== END 2024-11-29 07:18 | disposition home or self-care (01) ==
LOC: HO.HMGCLDS 07:17
PROVIDERS: Nurse Practitioner Family; PCP Internal Medicine; Visit Provider Internal Medicine
DX: E11.65 Type 2 diabetes mellitus with hyperglycemia (principal); N52.9 Male erectile dysfunction, unspecified
CPT/HCPCS: 36415; 80053; 80061; 82043; 82570; 83036; 85025

== ENCOUNTER 2024-12-13 08:26 | Outpatient (AMB) | payer OTHER, SELFPAY ==
--- NOTE | 2024-12-13 08:35 | MHC.OFFVIS ---
Vital Signs 12/13/24 09:07 Height 5 ft 8 in Weight 180 lb BMI 27.4 Intake Visit Reasons: fu Pt-malformation of nails, type II diabetes Intake Note: Imtiaz is a 54 year year old male who presents today as for a follow up on his Tinea unguium. During his last visit the right hallux was debrided and the clippings were sent for culture and pathology and results are in patients chart. Pt states he has no concerns at this time. Allergies No Known Allergies Allergy (Verified 12/13/24 09:07) HPI HPI fu Pt-malformation of nails, type II diabetes: Details: The patient is a 53-year-old male past medical history of diabetes mellitus type 2, hypertension returns for nail biopsy results. 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 History: The patient reports a chronic history of fungal toe nails, with previous attempts at treatment including topical medications and total nail removal for his left great toe 3-4 years ago. He states the medication did not help, and the nail removal did mildly improve the appearance. He has not had any treatment since then. The patient has a history of diabetes, diagnosed approximately eight to nine years ago. He states he initially managed the condition well but has recently experienced a lapse in control, with his most recent A1c of 11.8%. The patient has not seen a physician for the past five years and is now seeking to re-establish care and improve his health. The patient does describe some tingling and pins and needle sensations to his feet, denies any burning at this time. [facility] Medical History (Updated 12/13/24 @ 10:37 by Lance Balderrama DPM) Dyslipidemia Seborrhea capitis in adult Uncontrolled type 2 diabetes mellitus with hyperglycemia Family history of thyroid disease in mother Erectile dysfunction Overweight (BMI 25.0-29.9) Surgical History No pertinent past surgical history Family History Father Alcohol abuse by father Mother Mental health disorder Diabetes mellitus Goiter Brother Depression Social History Housing: House Alcohol intake: current Alcohol intake frequency: a few times a week Patient Tobacco Use Status: Former Tobacco user e-Cigarette/Vaping Use: Never Used Substance Use Type: Marijuana service: No Current occupational status: employed Cognitive needs: No Hearing needs: No Vision needs: Yes Review of Systems Const All systems reviewed & are unremarkable except as noted in HPI and below Physical Exam Extrem Other: *Bilateral Lower Extremity Focused Diabetic Foot Exam Vascular: DP/PT 2/4, CFT<3s to digits, TG warm to cool, no pedal edema, pedal hair present Derm: Skin: Annular scaling bilateral feet and inter space regions. Interdigital spaces: Annual scaling bilaterally Nails: Thickened elongated dystrophic toenails bilateral hallux, right hallux worse with subungual debris. Neuro: [place]-alec monofilament (10g) test 10/10 intact to right foot, 10/10 intact to left foot. Msk: Deformities: No evidence of hammertoes, bunions, Charcot changes, or other structural abnormalities. Muscle strength: 5/5 in all muscle groups. Gait: Normal, no antalgic or steppage gait observed. Footwear Assessment: Shoes inspected; appropriate fit, no excessive wear, or foreign objects noted. Results Reviewed Results Reviewed: 11/21/2024 Right hallux nail culture Result: Fungus present on culture. Does not resemble a dermatophyte. Yeast Isolate forwarded to [facility] for identification. Trichophyton rubrum Assessment & Plan Assessment & Plan (1) Tinea unguium: Code(s): B35.1 - Tinea unguium Category: Medical Plan: Reviewed culture results. Rx Ciclopirox ointment. Apply to fungal toenails daily. Remove buildup at the end of the week. Follow up in 3 months (2) Tinea pedis: Code(s): B35.3 - Tinea pedis Category: Medical Qualifiers: Laterality: bilateral Qualified Code(s): B35.3 - Tinea pedis Plan: Rx Clotrimazole ointment (3) Uncontrolled type 2 diabetes mellitus with hyperglycemia: Code(s): E11.65 - Type 2 diabetes mellitus with hyperglycemia Category: Medical Plan: Risk Stratification: No current ulceration, infection, or pre-ulcerative lesion. No loss of protective sensation or peripheral arterial disease. No plans for further testing/referrals for non-invasive vascular studies. The patient's A1c is above 11% which predisposes him to infections and delayed healing. Patient is at low-moderate risk for diabetic foot complications at this time. Recommendations: Continue routine foot care and daily self-inspection. Recommend moisturizing daily. Recommend supportive proper fitting shoe-wear. The patient may require diabetic shoes in the future. Reinforced diabetic foot education and risks from peripheral neuropathy. Medications: New clotrimazole 1% Applied to bottom of feet twice a day. 1 appl topical BID 15 grams 3RF Tinea pedis 4 weeks B35.3 - Tinea pedis ciclopirox 8% Applied to fungal toenails daily. Remove buildup at the end of the week. 1 appl topical BEDTIME 6.6 mL 4RF Fungal toenails 4 months B35.1 - Tinea unguium Coding Level of Care Code Est Pt Level 3 (71497) Diagnoses Tinea unguium B35.1 Tinea pedis of both feet B35.3 Laterality: bilateral Uncontrolled type 2 diabetes mellitus with hyperglycemia E11.65 Time Spent (min) 35
--- OUTSIDE RECORDS SUMMARY | 2024-12-13 08:50 | XMS_ITS | Clinical Summary ---
Author Organization [facility] Address [address] [place] [id number] Phone Care Team Providers Care Jboss Developer Name Role Phone Pcp, Unknown Primary Care [...] - 2024-2 6 season) 2024 10/28/2020, 09/30/2020 RSV VACCINE (1 - 1-dose 75+ series) 11/27/2047 HEPATITIS A VACCINES Aged Out No long [...] topic Medical Devices Not on file Insurance [facility] [place] [address] [place] [address] PPO [employer] Care Teams Jboss Developer Relationship Specialty Start Date End Date Pcp, Unknown PCP - General 02/16/21 Additional Source Comments The information contained in this document represents components of the legal health record. It is not the complete legal health record.[facility]
[2024-12-13 09:07] VITALS: BMI 27.4
== END 2024-12-13 08:57 | disposition home or self-care (01) ==
LOC: HO.HPODS 08:27
PROVIDERS: Visit Provider Student in an Organized Health Care Education/Training Program
DX: B35.1 Tinea unguium (principal); B35.3 Tinea pedis; E11.65 Type 2 diabetes mellitus with hyperglycemia
CPT/HCPCS: 99213

== ENCOUNTER 2025-01-24 08:54 | Outpatient (AMB) | payer OTHER, SELFPAY ==
--- NOTE | 2025-01-24 09:01 | MHC.OFFVIS ---
Intake Visit Reasons: ED/ nocturia/UA Intake Note: Patient is present for ED/NOCTURIA/UA A1C:10.8 Urology Medication:NONE Antibiotic Allergy:NONE Blood Thinner:NONE Cafeteria Attendant Required: No Allergies No Known Allergies Allergy (Verified 01/24/25 09:48) Medication List - Last Reconciled 01/24/25 by SARAY Dasilva- blood sugar diagnostic (FreeStyle Lite Strips) Check fasting glucose twice a day before meals and keep a log of the readings blood-glucose meter As directed blood-glucose meter (FreeStyle [place] Lite kit) As directed ciclopirox 8% 1 appl topical BEDTIME 4 months clotrimazole 1% 1 appl topical BID 4 weeks desonide 0.05% (DesOwen) 1 appl topical BID lancets (FreeStyle Lancets) Check fasting glucose twice a day before meals lisinopril 5 mg PO DAILY metformin 1,000 mg PO BIDWMEAL rosuvastatin 5 mg PO DAILY tadalafil (Cialis) 10 mg PO DAILY 90 days tadalafil 10 mg PO .on demand PRN 30 days HPI Comments Details: Imtiaz is a pleasant 54-year-old male patient of Dr. Patel. He has a past medical history of dyslipidemia, uncontrolled type 2 diabetes, ED, and obesity. He presents to the office today for a follow up of his erectile dysfunction. In discussion with the patient today he reports since his last office visit here he has had multiple ongoing stressors in his home life and has not been following up with his PCP nor taking care of his health. He discusses the recent passing of his mother and was homeless for some time. He has recently reestablished care with his PCP and is working on the management of his diabetes as most recent A1c 12/15 10.8 %. He discusses his ongoing issues with alcohol dependence as well as recreational marijuana. We did discussed at length potential causes of ED as well as further treatment options and risks and benefits of these treatment options. He had previously been on daily dosing 5 mg of tadalafil in his requesting refill. In office urinalysis results reviewed with the patient today. He denies any bothersome urinary issues. He denies urinary urgency, urinary frequency, incontinence, nocturia, hematuria, dysuria, foul smelling urine, changes to urinary stream, flank pain, fever, and or chills. He is happy with his current voiding parameters. Labs are as follows: PSA 05/13 1.3, 11/14 1.2 Testosterone: 05/13 508 free testosterone: 05/13 94.5. A1c: 11/15 11.4%, 12/15 10.8% He otherwise offers no other issues or concerns at the time. [facility] Medical History Dyslipidemia Seborrhea capitis in adult Uncontrolled type 2 diabetes mellitus with hyperglycemia Family history of thyroid disease in mother Erectile dysfunction Overweight (BMI 25.0-29.9) Surgical History No pertinent past surgical history Family History Father Alcohol abuse by father Mother Mental health disorder Diabetes mellitus Goiter Brother Depression Social History Housing: House Alcohol intake: current Alcohol intake frequency: a few times a week Patient Tobacco Use Status: Former Tobacco user e-Cigarette/Vaping Use: Never Used Substance Use Type: Marijuana service: No Current occupational status: employed Cognitive needs: No Hearing needs: No Vision needs: Yes Review of Systems Const All systems reviewed & are unremarkable except as noted in HPI and below Physical Exam Const General: cooperative, healthy appearing, comfortable, no acute distress, well developed, alert and awake Orientation/consciousness: patient oriented x3 Limitations: no limitations HEENT Head: Yes normal to inspection, Yes normocephalic and Yes atraumatic Ears: hearing grossly normal bilaterally Eyes General: appearance normal, both eyes and all related structures Neck Neck: Yes normal visual inspection and Yes trachea midline Chest Chest palpation & inspection: normal inspection of the chest Resp Effort & Inspection: normal respiratory effort and able to speak in complete sentences Cardio Rate: regular rate GI Inspection: Yes normal to inspection General: Yes no CVA tenderness Back/Spine/Pelvis Back: no CVA tenderness Skin General skin exam: no rashes or lesions noted Neuro General: patient oriented x3 Extrem General: Yes normal to inspection Psych Appearance: grossly normal and well kempt Mental Status: mental status grossly normal Speech and movement: Normal speech and movement present and Clear speech present Affect: normal affect Attitude: cooperative Thought process: Normal thought process present Thought content: Normal thought content present Insight: Fair insight present (Psych) Judgement: Fair judgement present (Psych) Results AMB Urinalysis, Automated UA Leukoctes 0 Reji/uL Last Edit by JONATHON Rodriguez on 01/24/25 09:14 UA Nitrite Negative Last Edit by JONATHON Rodriguez on 01/24/25 09:14 UA Urobilinogen 0.2 mg/dL Last Edit by JONATHON Rodriguez on 01/24/25 09:14 UA Protein 15 mg/dL Last Edit by Marcelina [facility] on 01/24/25 09:14 UA pH 5.5 Last Edit by Marcelina [facility] on 01/24/25 09:14 UA Blood 0 Federico/uL Last Edit by Marcelina Saez [facility] on 01/24/25 09:14 UA Specific [place] 1.030 Last Edit by JONATHON Rodriguez on 01/24/25 09:14 UA Ketone Negative Last Edit by Marcelina Saez [facility] on 01/24/25 09:14 UA Bilirubin 0 mg/dL Last Edit by Marcelina Saez [facility] on 01/24/25 09:14 UA Glucose 500 mg/dL Last Edit by Marcelina Saez [facility] on 01/24/25 09:14 Assessment & Plan Assessment & Plan (1) Erectile dysfunction associated with type 2 diabetes mellitus: Code(s): E11.69 - Type 2 diabetes mellitus with other specified complication; N52.1 - Erectile dysfunction due to diseases classified elsewhere Category: Medical Plan In office urinalysis results with the patient today; as noted above. Discussed, educated, and stressed the importance of managing diabetes for improvement in ED as well as overall health and well-being. Start 10 mg of Cialis daily P.r.n. prescription provided for p.r.n. dosing We discussed further treatment options of erectile dysfunction and risks and benefits of these treatment options. We discussed potential causes of ED Discussed at length importance of lifestyle modifications with adequate sleep, limiting/quitting recreational marijuana, weight loss for improvement in erectile dysfunction as well as overall health and well-being. Patient otherwise denies any urological issues or concerns at this time. He is happy with his current voiding parameters Will obtain PSA, testosterone, and A1c Follow-up in 3 months with labs to be completed prior or sooner with any issues, concerns, and or questions. Orders: Orders AMB Urinalysis Automated Today Z13.9 - Encounter for screening, unspecified Hemoglobin A1c 3 Months E11.9 - Type 2 diabetes mellitus without complications Prostate Specific Antigen 3 Months E11.69 - Type 2 diabetes mellitus with other specified complication, N52.1 - Erectile dysfunction due to diseases classified elsewhere Testosterone, Free/Total 3 Months E11.69 - Type 2 diabetes mellitus with other specified complication, N52.1 - Erectile dysfunction due to diseases classified elsewhere Medications: New tadalafil (Cialis) [id number] [facility] Member [id number] 10 mg PO DAILY 90 tabs 3RF 90 days tadalafil as needed [id number] [facility]33 Member [id number] 10 mg PO .on demand PRN 10 tabs 1RF sexual activity 30 days N52.9 - Male erectile dysfunction, unspecified Patient Instructions: The patient had an opportunity to ask questions regarding the treatment plan. All questions were answered. Physical exam, labs, and imaging were discussed and reviewed in detail. As well as risks, benefits, and discussion of treatment choices. No major barriers to understanding were identified. The patient expressed understanding and agreement with the above treatment plan. The patient was made aware they should contact our office by phone for worsening of their current condition, the appearance of new symptoms, or with any questions or concerns. Compliance is encouraged with any medications and follow up testing that is ordered. It is a privilege to be allowed the opportunity to participate in? your urological care.? Again, if you have any questions or concerns If you have any questions or concerns please do not hesitate to contact me. The office is [phone]. This note is constructed using voice recognition software. While every effort has been made to ensure accuracy heel compressor errors may have been included. Yours sincerely, OTILIA Dasilva Coding Level of Care Code Est Pt Level 4 (34715) Complex visit Add On G2211 Diagnoses Erectile dysfunction associated with type 2 diabetes mellitus E11.69; N52.1
--- OUTSIDE RECORDS SUMMARY | 2025-01-24 09:36 | XMS_ITS | Clinical Summary ---
Author Organization [facility] Address [address] [place] [phone] Phone Care Team Providers Care Supervisor Boat Outfitting Name Role Phone Pcp, Unknown Primary Care [...] topic Medical Devices Not on file Insurance [facility] PPO [employer] [address] [place] [address] PPO [employer] Care Teams Supervisor Boat Outfitting Relationship Specialty Start Date End Date Pcp, Unknown PCP - General 02/16/21 Additional Source Comments The information contained in this document represents components of the legal health record. It is not the complete legal health record.[facility]
== END 2025-01-24 09:34 | disposition home or self-care (01) ==
LOC: HO.HUSH 08:55
PROVIDERS: Visit Provider Nurse Practitioner Family
DX: E11.69 Type 2 diabetes mellitus with other specified complication (principal); N52.1 Erectile dysfunction due to diseases classified elsewhere; Z13.9 Encounter for screening, unspecified
CPT/HCPCS: 99214; G2211

== ENCOUNTER → 2025-01-24 08:54 | Outpatient (BNVA) | payer OTHER, SELFPAY | PROVIDERS: Visit Provider Nurse Practitioner Family | DX: Z00.01 Encounter for general adult medical examination with abnormal findings (principal); B35.1 Tinea unguium; F41.8 Other specified anxiety disorders; E11.65 Type 2 diabetes mellitus with hyperglycemia; E78.5 Hyperlipidemia, unspecified; I10 Essential (primary) hypertension; Z13.31 Encounter for screening for depression; E11.69 Type 2 diabetes mellitus with other specified complication; N52.1 Erectile dysfunction due to diseases classified elsewhere; Z13.9 Encounter for screening, unspecified | CPT/HCPCS: 81003; 96127 ==

== ENCOUNTER 2025-01-24 14:43 | Outpatient (AMB) | payer OTHER, SELFPAY ==
--- NOTE | 2025-01-24 14:56 | A.OFFPC_ITS ---
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 Allergies No Known Allergies Allergy (Verified 01/24/25 15:17) Medication List - Last Reconciled 01/24/25 by Ciara Patle MD blood sugar diagnostic (FreeStyle Lite Strips) Check fasting glucose twice a day before meals and keep a log of the readings blood-glucose meter As directed blood-glucose meter (FreeStyle [place] Lite kit) As directed clotrimazole 1% 1 appl topical BID 4 weeks desonide 0.05% (DesOwen) 1 appl topical BID lancets (FreeStyle Lancets) Check fasting glucose twice a day before meals lisinopril 5 mg PO DAILY metformin 1,000 mg PO BIDWMEAL rosuvastatin 5 mg PO DAILY tadalafil (Cialis) 10 mg PO DAILY 90 days Tobacco use date assessed: 01/24/25 Dental Screening Dental Screen Date: 01/24/25 Did you have a dental visit in the last 12 months?: Yes Did you have a dental problem in the last 6 months where you did not have access to dental care?: No Was dental information given to patient?: Patient has dentist HPI PE HPI Details The patient is a 54 year old male presenting for an annual physical exam and management of chronic conditions. He is currently prescribed metformin for diabetes, rosuvastatin for hypercholesterolemia, and lisinopril for renal protection secondary to diabetes. Regarding his diabetes, his A1c in October was 11.4, with blood sugars previ ously running in the high 300s. He takes metformin twice daily but with breakfast and lunch. He also uses clotrimazole cream for a fungal infection, desonide cream for his forehead as needed, and has a new prescription for tadalafil from his urologist. The patient reports significant psychosocial distress, describing himself as a whole mess. He has experienced the loss of both parents, a period of homelessness after his mother with dementia obtained a restraining order against him, and is now dealing with severe dental problems causing him significant stress. He is currently in therapy with a therapist named Abraham at [facility] but is not on any psychiatric medications The patient's dental history is a major contributor to his stress. 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 He states he requires dental implants, a procedure he cannot afford in the [facility], and plans to travel to [facility] for dental surgery, which will require significant time off work. He reports only having one point of contact in his mouth for chewing, and that tooth is now failing. For health maintenance, the patient sees an eye doctor for his diabetes eye exam, but declined flu and pneumonia vaccinations. He has upcoming appointments for his foot in February, arthritis in , and with his urologist in April or May. [facility] Medical History (Updated 01/28/25 @ 04:15 by Ciara Patel MD) Essential hypertension Depression with anxiety Dyslipidemia Seborrhea capitis in adult Uncontrolled type 2 diabetes mellitus with hyperglycemia Family history of thyroid disease in mother Erectile dysfunction Overweight (BMI 25.0-29.9) Surgical History No pertinent past surgical history Family History Father Alcohol abuse by father Mother Mental health disorder Diabetes mellitus Goiter Brother Depression Social History Housing: House Alcohol intake: current Alcohol intake frequency: a few times a week Patient Tobacco Use Status: Former Tobacco user e-Cigarette/Vaping Use: Never Used Substance Use Type: Marijuana service: No Current occupational status: employed Cognitive needs: No Hearing needs: No Vision needs: Yes Questionnaire PHQ-9 Over the last 2 weeks, how often have you been bothered by any of the following problems? 1. Little interest or pleasure in doing things: several days 2. Feeling down, depressed, or hopeless: several days 3. Trouble falling or staying asleep, or sleeping too much: not at all 4. Feeling tired or having little energy: several days 5. Poor appetite or overeating: more than half the days 6. Feeling bad about yourself - or that you are a failure or have let yourself or your family down: several days 7. Trouble concentrating on things, such as reading the newspaper or watching television: more than half the days 8. Moving or speaking so slowly that other people could have noticed. Or the opposite - being so fidgety or restless that you have been moving around a lot more than usual: not at all 9. Thoughts that you would be better off or of hurting yourself in some way: not at all Total score: 8 Depression Screening Interpretation: Positive (bradly Sawyer , therapist at [facility]) Depression Screening Done: Yes Source: Developed by Drs. Evangelist Johnston, Lana Castle, Dieudonne Mercedes and colleagues, with an educational delmy from [employer]. Thrive Questionnaire Date Thrive assessed: 11/08/24 I am a: Patient What is your living situation today?: I have a place to live, but I am worried about losing it in the future Within the past 12 months, did the food you bought not last and you didn't have the money to get more?: Sometimes True Within the past 12 months, did you worry whether your food would run out before you got money to buy more?: Sometimes True Do you have trouble paying for medicines?: Yes Do you have trouble getting transportation to medical appointments?: No Do you have trouble paying your heating and electricity bill?: No Do you have trouble taking care of your child, family member or friend?: No Do you have trouble with day-to-day activities such as bathing, preparing meals, shopping, managing finances, etc.?: Yes Are you currently unemployed and looking for a job?: No Are you interested in more education?: No Please select the resources that you would like help with: Job search/training Currently or been in a relationship where the following occur: No concerns reported THRIVE Score: 3 AUDIT C Alcohol Use Questionnaire (AUDIT-C) 1. How often do you have a drink containing alcohol?: 2-3 times a week 2. How many drinks containing alcohol do you have on a typical day when you are drinking?: 5 or 6 3. How often do you have six or more drinks on one occasion?: Monthly Total Score: 7 NAJMA-7 AMB Questionnaire NAJMA-7 Date NAJMA - 7 assessed: 11/08/24 Feeling nervous, anxious, or on edge: 1 = Several days Not being able to stop or control worryin = Several days Worrying too much about different things: 1 = Several days Trouble relaxin = Several days Being so restless that it is hard to sit still: 1 = Several days Becoming easily annoyed or irritable: 1 = Several days Feeling afraid as if something awful might happen: 0 = Not at all Total NAJMA-7 score (0-4 normal; 5-9 mild; 10-14 moderate; 15-21 severe): 6 Source: Developed by Drs. Evangelist Johnston, Lana Castle, Dieudonne Mercedes and colleagues, with an educational delmy from [employer]. Review of Systems Const Reports fatigue, Denies headache(s) and Reports lethargy Eyes Details: Goes to [facility] in [place] ENT Reports as per HPI and Denies headache(s) Card Denies chest pain, Denies irregular heart rhythm and Denies dyspnea Resp Denies cough and Denies dyspnea GI Reports no additional complaints Reports urinary frequency Musc Reports no additional complaints Skin/Breast Denies rash Neuro Denies headache(s) Psych Reports as per HPI Endo Reports fatigue, Reports polydipsia and Reports polyuria Taqueria/Lymph Reports no additional complaints Aller/Immun Reports no additional complaints Physical exam (Primary Care) Vital Signs: Last Vital Signs Temp 98.2 F 01/24/25 15:07 Pulse 102 H 01/24/25 15:07 Resp 16 01/24/25 15:07 BP 112/74 01/24/25 15:07 Pulse Ox 98 01/24/25 15:07 Oxygen Delivery Method Room Air 01/24/25 15:07 BMI result Body Mass Index 26.9 Tobacco/Smoking Status: Tobacco use Status Tobacco use date assessed 01/24/25 01/24/25 15:01 Patient Tobacco Use Status Former Tobacco user 01/24/25 15:01 e-Cigarette/Vaping Use Never Used 01/24/25 15:01 PHQ-9: PHQ-9 Score PHQ-9: Total score 8 01/24/25 15:32 Depression Screening Interpretation: Positive (bradly Sawyer , therapist at [facility]) Thrive Assessment: Date of Thrive Assessment Date Thrive assessed 11/08/24 01/24/25 15:01 Currently or been in a relationship where the following occur: No concerns reported Const General: no acute distress, alert and awake Nutritional Appearance: overweight Orientation/consciousness: patient oriented x3 [facility] Ears: hearing grossly normal bilaterally, external ears normal, TM's normal bilaterally and EAC's normal General nose exam: Normal external nose present Face and sinus: Yes face symmetric Mouth: Normal oral and palatal mucosa present, tongue normal and moist mucous membranes Teeth and gingiva: dentures, gingiva abnormal and multiple restorations Eyes General: appearance normal, both eyes and all related structures Neck Neck: Yes full ROM, Yes no lymphadenopathy and Yes supple Chest Chest palpation & inspection: normal inspection of the chest Resp Effort & Inspection: normal respiratory effort and able to speak in complete sentences Auscultation: clear to auscultation bilaterally Cardio Other: S1-S2 present regular rate and rhythm GI Other: Normal bowel sounds, soft, nontender with no mass palpated General: Yes no CVA tenderness Male General Exam: Yes normal external exam and No inguinal lymphadenopathy Back/Spine/Pelvis Back: no CVA tenderness Skin Other: scaly rash on eyebrow and scalp, thick hyperpigmented toenail on left big toe Neuro General: patient oriented x3, gait normal, moves all extremities, Normal light touch and pain sensation and no focal motor deficits Cognition (Neuro): normal cognition Gait exam (Neuro): Normal gait present Extrem General: Yes normal to inspection, Yes full ROM, Yes no joint enlargement, Yes no clubbing, cyanosis or edema, Yes no calf tenderness and Yes normal gait Psych Appearance: grossly normal and well kempt Mental Status: mental status grossly normal Speech and movement: Normal speech and movement present Affect: normal affect Results AMB Urinalysis, Automated UA Leukoctes 0 Reji/uL Last Edit by JONATHON Rodriguez on 01/24/25 09:14 UA Nitrite Negative Last Edit by JONATHON Rodriguez on 01/24/25 09:14 UA Urobilinogen 0.2 mg/dL Last Edit by JONATHON Rodriguez on 01/24/25 09:1 4 UA Protein 15 mg/dL Last Edit by JONATHON Rodriguez on 01/24/25 09:14 UA pH 5.5 Last Edit by JONATHON Rodriguez on 01/24/25 09:14 UA Blood 0 Federico/uL Last Edit by JONATHON Rodriguez on 01/24/25 09:14 UA Specific [place] 1.030 Last Edit by JONATHON Rodriguez on 01/24/25 09: 14 UA Ketone Negative Last Edit by JONATHON Rodriguez on 01/24/25 09:14 UA Bilirubin 0 mg/dL Last Edit by JONATHON Rodriguez on 01/24/25 09:14 UA Glucose 500 mg/dL Last Edit by JONATHON Rodriguez on 01/24/25 09:14 Results Reviewed Results Reviewed: Name: Imtiaz Vazquez Age/Sex: 54/M : 1970 Unit#: [id number] Attend Dr: Ciara Patel MD Re11/29/24 Status: DEP REF [facility] Disch: SPEC : [id number] FANTASMA: 11/29/24 STATUS: COMP REQ : [id number] RECD: 11/29/[address] [facility] [address]: Ciara Patel MD COMP: 11/29/24 ENTERED: 11/29/24 [facility] DR: ORDERED: CBC Auto Diff Test Result Flag Reference WBC 8.2 4.8-10.8 X10*3/uL RBC 4.74 4.60-5.80 X10*6/uL HGB 14.8 14.0-18.0 g/dl HCT 42.7 42.0-52.0 % MCV 90.1 80.0-98.0 fL MCH 31.2 27.0-33.0 pg MCHC 34.7 31.0-36.0 g/dl RDW 11.9 11.0-16.0 % PLT 251 # 160-400 X10*3/uL MPV 11.8 9.4-12.4 fL Neut Pct Auto 51.7 45-73 % ImGran Pct Auto 0.4 0.0-0.4 % Lymp Pct Auto 38.3 20-40 % [place] Pct Auto 7.9 2-11 % Eos Pct Auto 1.2 0-4 % Baso Pct Auto 0.5 0-2 % NRBC Pct Auto 0.0 0.0-0.2 /100WBC ANC Neut Abs # 4.2 2.0-8.3 x10*3/uL ImGran Abs Auto 0.03 0.00-0.03 X10*3/uL Lymph Abs Auto 3.1 1.2-4.9 X10*3/uL [place] Abs Auto 0.7 0.1-1.2 X10*3/uL Eos Abs Auto 0.1 0.0-0.4 X10*3/uL Baso Abs Auto 0.0 0.0-0.2 X10*3/uL NRBC Abs Auto 0.000 0.0-0.012 X10*3/uL Name: Imtiaz Vazquez Age/Sex: 54/M : 1970 Unit#: [id number] Attend Dr: Ciara Patel MD Re11/29/24 Status: DEP REF [facility] Disch: SPEC : [id number] FANTASMA: 11/29/24 STATUS: COMP REQ : [id number] RECD: 11/29/[address] [facility] [address]: Ciara Patel MD COMP: 11/29/24 ENTERED: 11/29/24 [facility] DR: ORDERED: CMP Fast, Lipid Panel Test Result Flag Reference Sodium 139 135-145 mmol/L Potassium 3.7 3.3-5.1 mmol/L CL 103 96-108 mmol/L CO2 30 H 22-29 mmol/L Gap 10 L 12-20 BUN 12 9-16 mg/dL Creat 0.65 0.5-1.4 mg/dL eGFR > 60 Chronic Kidney Disease: Estimated GFR < 60 mL/min/1.73m2 Severe Kidney Disease: Estimated GFR < 15 mL/min/1.73m2 FBS 192 H 60-99 mg/dL A fasting glucose of 126 mg/dl or greater on more than one occasion is considered diagnostic of diabetes. CA 9.2 8.4-10.2 mg/dL Total Bili 1.5 H 0.0-1.0 mg/dL AST (GOT) 23 5-37 U/L ALT (GPT) 16 0-40 U/L Protein, Total 7.1 6.5-8.0 g/dL Alb 4.5 3.5-5.0 g/dL Triglyceride 126 <150 mg/dL Desirable Triglyceride: less than 150 mg/dL Borderline High Triglyceride 150-199 mg/dL High Triglyceride: 200-499 mg/dL Very High Triglyceride: greater than or equal to 5OO mg/dL Cholesterol 226 H <200 mg/dL Desirable Cholesterol: less than 200 mg/dL Borderline High Cholesterol: 200-239 mg/dL High Cholesterol: greater than 239 mg/dL LDL Calculated 160 H <100 mg/dL Desirable LDL: less than 100 mg/dL Near Optimal/Above Optimal LDL: 110-129 mg/dL Borderline High LDL: 130-159 mg/dL High LDL: 160-189 mg/dL Very High LDL: greater than or equal to 190 mg/dL HDL 41 >40 mg/dL Desirable HDL: greater than 40 mg/dL Note: This HDL assay may give artificially low results in patients with liver disease. Alk Phos 74 39-117 U/L Laboratory Tests 11/29/24 07:24 Estimat Average Glucose 263 Hemoglobin A1c % 10.8 H Microalb/Creat Ratio 75.2 H Coding Level of Care Code Est Pt Prev Care 40-64y(04110) Diagnoses Depression with anxiety F41.8 Uncontrolled type 2 diabetes mellitus with hyperglycemia E11.65 Dyslipidemia E78.5 Essential hypertension I10 Tinea unguium B35.1 Annual visit for general adult medical examination with abnormal findings Z00.01 Assessment & Plan Assessment & Plan (1) Depression with anxiety: Code(s): F41.8 - Other specified anxiety disorders Category: Medical Plan: The patient is experiencing significant distress secondary to complex personal, financial, and dental issues. He is in therapy but feels it is insufficient. Plan is to refer him to a psychiatrist in [place] for formal evaluation, diagnosis, potential medication management (2) Uncontrolled type 2 diabetes mellitus with hyperglycemia: Code(s): E11.65 - Type 2 diabetes mellitus with hyperglycemia Category: Medical Plan: he patient's A1c was 11.4% in October, will recheck A1c, CMP, and lipids again in 3 months The patient was counseled to space his metformin doses to a morning and evening schedule, approximately 12 hours apart, for better glycemic control. Will request records from his recent eye exam to screen for retinopathy. He will follow up in 3 months with repeat labs done one week prior to the visit. (3) Dyslipidemia: Code(s): E78.5 - Hyperlipidemia, unspecified Category: Medical Plan: Repeat another fasting lipid panel in 3 months, in the meantime continue with rosuvastatin 5 mg daily (4) Essential hypertension: Code(s): I10 - Essential (primary) hypertension Category: Medical Plan: Continue lisinopril 5 mg daily, reinforced importance of adhering to a low-salt diet and getting regular exercise (5) Tinea unguium: Code(s): B35.1 - Tinea unguium Category: Medical Plan: [place] appointment [place] see [facility] [place] (6) Annual visit for general adult medical examination with abnormal findings: Code(s): Z00.01 - Encounter for general adult medical examination with abnormal findings Plan: Repeat fasting labs again in 3 months. Recommended dental visit every 6 months and regular eye exams, at least every 2 years. Take adequate calcium in diet and vitamin-D 3 at 2000 IU per cap once a day, in addition to weight-bearing exercises to help maintain good muscle tone and weight control. Instructed to do self-testicular exam check for any mass. The patient is due for preventative care. Plan includes obtaining records from his eye doctor for a diabetic retinopathy screen results. Flu and pneumonia vaccines were recommended due to his diabetes, but he declined. He has upcoming appointments with podiatry and rheumatology. Colon cancer screening declined Orders: Referrals Psychiatry Referral F41.8 - Other specified anxiety disorders Medications: Changed From metformin 1,000 mg PO BIDWMEAL 60 tabs 5RF E11.65 - Type 2 diabetes mellitus with hyperglycemia To metformin 1,000 mg PO BIDWMEAL 180 tabs 2RF 3 months E11.65 - Type 2 diabetes mellitus with hyperglycemia Refilled lisinopril 5 mg PO DAILY 90 tabs 3RF
[2025-01-24 15:07] VITALS: BP 112/74; PULSE 102; RESP 16; TEMP 36.8; O2SAT 98; BMI 26.9
== END 2025-01-24 15:46 | disposition home or self-care (01) ==
LOC: HO.HMCC 14:44
PROVIDERS: Visit Provider Internal Medicine
DX: F41.8 Other specified anxiety disorders (principal); E11.65 Type 2 diabetes mellitus with hyperglycemia; E78.5 Hyperlipidemia, unspecified; I10 Essential (primary) hypertension; B35.1 Tinea unguium; Z00.01 Encounter for general adult medical examination with abnormal findings